=== PATIENT | female | born 1965 | race Caucasian/White ===

== ENCOUNTER → 2020-04-21 | Outpatient (CLI) | payer OTHER ==
--- NOTE | 2020-04-27 17:06 | PATH ---
[address] [address] PATHOLOGY RPT PROCEDURE Name: GUILLAUME INFANTE Room: [facility]#: [id number] Admission: 04/21/20 Date of : 65 Discharge: Report #: [id number] Path Case #: [id number] [facility] Accession Number: [id number] . 01 Material submitted: . breast - LEFT MEDIAL INFERIOR BREAST 7:00 7CMFN. Modifiers: left, medial, inferior . 01 Clinical history: . 1.33 X 1.08 X 1.64, TOUCH PREP REQUESTED, BREAST CANCER . 02 Diagnosis: Left medial inferior breast, 7:00, 7.0 cm from nipple, image-guided core biopsies: - INFILTRATING DUCTAL ADENOCARCINOMA, INTERMEDIATE GRADE, SPANNING AT LEAST 9 MM. - Small fragment of benign skin. (See comment) . (KELVIN:sharon; 04/22/2020) . . Surgical Pathology Cancer Case Summary . INVASIVE CARCINOMA OF THE BREAST: Biopsy . Procedure ___ Other: Image-guided core biopsies . Specimen Laterality ___ Left . Tumor Site ___ Clock position: 7 o'clock ___ Distance from nipple: 7.0 cm ___ Other: Medial inferior . Tumor Size ___ Greatest dimension of largest invasive focus >1 mm: At least 9 mm . Histologic Type ___ Invasive carcinoma of no special type (ductal) . Histologic Grade (Minor Histologic Score) . Glandular (Acinar)/Tubular Differentiation ___ Score 3 (<10% of tumor area forming glandular/tubular structures) [place] [address] PATHOLOGY RPT PROCEDURE Name: GUILLAUME INFANTE Room: [facility].#: [id number] Admission: 04/21/20 Date of : 65 Discharge: Report #: [id number] Path Case #: [id number] ___ Score 2 (cells larger than normal with open vesicular nuclei, visible nucleoli, and moderate variability in both size and shape) . Mitotic Rate ___ Score 1 . Overall Grade ___ Grade 2 (scores of 6 or 7) . Ductal Carcinoma In Situ (DCIS) ___ Present . Architectural Patterns ___ Solid . Nuclear Grade ___ Grade II (intermediate) . Necrosis ___ Not identified . Lymphovascular Invasion ___ Not identified . Microcalcifications ___ Present in invasive carcinoma . Ancillary Studies . Biomarker Studies ___ Pending on block A2 . (KELVIN:sharon; 04/22/2020) [facility] 04/23/2020 0951 Local . 02 Comment: Approximately 95% of the submitted tissues are involved by invasive carcinoma which shows some crush artifact attributable to touch prepping. Properly-controlled immunohistochemical studies, performed on A1, show the following results, supporting the classification: . E-cadherin: positive Keratin JING: positive . Breast tumor profile studies are pending and will be the subject of an addendum report. Emi (acting [facility] Breast Navigator) notified of preliminary findings at approximately 1505 on 04/22/2020[place] [address] PATHOLOGY RPT PROCEDURE Name: GUILLAUME INFANTE Room: [facility]#: [id number] Admission: 04/21/20 Date of : 65 Discharge: Report #: [id number] Path Case #: [id number] (KELVIN:mm; 04/22/2020) . 02 Addendum: . Special studies report received from [facility], [address] [place] [address], [address], [place], [address], on case [id number], labeled with their number [id number], dated 04/26/2020. . Breast/Prognostic Marker Analysis . Specimen Site: Left Breast, Medial Inferior, 7:00 (Biopsy), Infiltrating Ductal Adenocarcinoma Specimen ID #: [id number] . ER (Estrogen Receptor) Present/Positive Percent: 90.00% Analysis: Manual Comments: Staining Intensity: Strong. . WV (Progesterone Receptor) Present/Positive Percent: 40.00% Analysis: Manual Comments: Staining Intensity: Moderate-strong. . HER2 Not Over-Expressed Score: 1+ Analysis: Manual . Ki-67 High Proliferation Percent: 40.00% Analysis: Manual . Time to Fixation (Cold Ischemic Time): 11 minutes Duration of Fixation: 6 to 72 Hours Type of Fixative: 10% Neutral Buffered Formalin . . Comments: ER/PgR testing at [facility] is performed in compliance with the ASCO/CAP Clinical Practice Guidelines. If the result for ER is less than 1% it is reported as Negative; if the ER result is 1-10% it is reported as Low Positive; if the ER result is greater than 10% it is reported as Positive. If the result for PgR is less than 1% it is reported as Negative; if the PgR result is equal to or greater than 1%, it is reported [place] [address] PATHOLOGY RPT PROCEDURE Name: GUILLAUME INFANTE Room: [facility] SUZIE Bassett#: [id number] Admission: 04/21/20 Date of : 65 Discharge: Report #: [id number] Path Case #: [id number] Ref: Jackie MELENDEZ, Anabelle PRADOH, Everardo M, et al. Estrogen and progesterone receptor testing in breast cancer. ASCO/CAP guideline update. Arch Pathol Lab Med. 2020; 144:545-563. . Whole slide image capture is performed using [employer]) platform. Image analysis, if ordered, is performed using [employer] software. . at [facility]. Nadeem Mathias M.D. Pathologist . Methodology The HER2 Receptor protein expression is analyzed using the [place] HER2 rabbit monoclonal antibody (clone 4B5). This assay is used for diagnostic determination of the HER2 protein over-expression in paraffin embedded, formalin fixed breast cancer tissue on the [employer]. The specimen is processed using a secondary antibody-HRP conjugate detection system. The membrane staining of the tumor is determined either by manual score or image analysis. This antibody is intended for in vitro diagnostic use. The score is reported as 0, 1+, 2+, or 3+. This test is used for clinical purposes. . A rabbit monoclonal antibody (clone SP1) that recognized the Estrogen Receptor is used to perform immunohistochemistry on routinely fixed (formalin) paraffin embedded tissue on the [place] Benchmark. The specimen is processed using a secondary antibody-HRP conjugate detection system. The percentage of stained tumor nuclei is determined either manually or by image analysis. This test is intended for in vitro diagnostic use. This test is used for clinical purposes. . A rabbit monoclonal antibody (clone 1E2) that recognized the Progesterone Receptor is used to perform immunohistochemistry on routinely fixed (formalin) paraffin embedded tissue on the [place] Bench[employer]. The specimen is processed using a secondary antibody-HRP conjugate detection system. The percentage of stained tumor nuclei is determined either manually or by image analysis. This test is intended for in vitro diagnostic use. This test is used for clinical purposes. . A rabbit monoclonal antibody (clone 30-9) that recognized Ki67 is used to perform immunohistochemistry on routinely fixed (formalin) paraffin embedded tissue on the [place] Bench[employer]. The specimen is processed using a secondary antibody-HRP conjugate detection system. The percentage of stained tumor nuclei is determined either manually or by image analysis. This test is intended for in vitro diagnostic use. This test is used for clinical purposes. . Intended Use: [address] [address] PATHOLOGY RPT PROCEDURE Name: SURAJEARLEDEZGUILLAUMEDEBRA QUIÑONES Room: [facility]#: [id number] Admission: 04/21/20 Date of : 65 Discharge: Report #: [id number] Path Case #: [id number] This antibody is intended for in vitro diagnostic (IVD) use. HER2 (4B5) is a rabbit monoclonal antibody intended for the semi-quantitative detection of HER2 antigen in sections of formalin-fixed, paraffin embedded normal and neoplastic tissue. . This antibody is intended for in vitro diagnostic (IVD) use. Estrogen Receptor (ER) (SP1) is a rabbit monoclonal antibody (IgG) that is intended for the qualitative detection of estrogen receptor (ER) antigen in sections of formalin-fixed, paraffin-embedded tissue. ER is a rabbit monoclonal antibody that recognizes human estrogen receptor alpha. . This antibody is intended for in vitro diagnostic (IVD) use. Progesterone Receptor (WV) (1E2) is a rabbit monoclonal antibody (IgG) that is intended for the qualitative detection of progesterone receptor (WV) antigen in sections of formalin fixed, paraffin embedded tissue. WV is a rabbit monoclonal antibody that recognizes the A and B forms of the human progesterone receptor. . This antibody is intended for in vitro diagnostic (IVD) use. Ki-67 (30-9) is a rabbit monoclonal antibody (IgG) directed against C-terminal portion of Ki-67 antigen. Staining for Ki-67 can be used to aid in assessing the proliferative activity of normal and neoplastic tissue. Ki-67 is a nuclear protein expressed in proliferating cells. During the cell cycle, the Ki-67 antigen is present in the G1, S, G2 and M phase but is absent in the G0 (quiescent phase). . . Disclaimer: This Test was performed by [facility] at [address], [address]. . [facility] is a business unit of [facility]. a wholly-owned subsidiary of [employer]. . This assay has not been validated on decalcified tissues. Results should be interpreted with caution if this specimen was decalcified given the likelihood of false negativity on decalcified specimens. . Any image(s) that accompany this report is/are a [employer] representatives image(s) only and should not be used to render a diagnosis. . This interpretation is contingent on the specimen and the clinical information received. . For any special tests/stains performed, known positive cells or tissues are tested with each marker and examined to ensure positivity. Positive and negative internal controls, if present, [place] [address] PATHOLOGY RPT PROCEDURE Name: GUILLAUME INFANTE Room: [facility] SUZIE Bassett#: [id number] Admission: 04/21/20 Date of : 65 Discharge: Report #: [id number] Path Case #: [id number] This analysis is an adjunct to the evaluation of the referring physician and does not represent a final diagnosis. . The immunohistochemistry tests performed at [facility] were validated on tissue fixed in 10% neutral buffered formalin. The performance characteristics of the tests performed on tissue processed in other fixatives is not known. . HER2 testing at [facility] [employer] is performed in compliance with the 2018 updated ASCO/CAP Clinical Practice Guideline Focused Update. If the result is EQUIVOCAL (2+), it must be confirmed by an alternative assay such as FISH or Dual ESSENCE. REF: Myles ARIAS, JOSEY hAn et al: Human Epidermal Growth Factor Receptor 2 Testing in Breast Cancer: ASCO/CAP Clinical Practice Guideline Focused Update. J Clin Oncol 36:6023-7417, 2018. . HER2 and ER/WV ASCO/CAP guidelines require fixation in neutral buffered formalin for a minimum of 6 and a maximum of 72 hours. Fixation times less than 6 hours may not adequately preserve cell proteins. Fixation times longer than 72 hours may cause excess cross-linking of proteins reducing the antigen available for staining. Either scenario can cause reduced staining; hence false negative results are possible and should be considered for these situations if the HER2 IHC score is less than 3+ or ER or WV is negative (no staining or <1% positive). It is recommended that specimens fixed longer than 72 hours with HER2 IHC scores less than 3+ be confirmed by HER2 FISH or Dual ESSENCE. The time from biopsy/excision to fixation in formalin (cold ischemic time) must be less than 1 hour. Time to fixation (cold ischemic time) greater than 1 hour should be interpreted with caution. HER2 testing, mainly HER2 by FISH, is particularly vulnerable since excessive cold ischemic time results in preferential loss of HER2 probe signals that may lead to false negative results. . SCORE STAINING PATTERN IN TUMOR CELLS INTERPRETATION RESULTS 0 No staining observed or incomplete, faint membrane staining in less than or equal to 10% of tumor cells. Negative 1+ Incomplete, faint membrane staining in greater than 10% of tumor cells. Negative 2+ Weak to moderate complete membrane staining observed in greater than 10% of tumor cells. Equivocal* *Must be confirmed by alternative assay (IHC/FISH/Dual ESSENCE) 3+ Intense, complete membrane staining in greater than 10% of [place] [address] PATHOLOGY RPT PROCEDURE Name: GUILLAUME INFANTE Room: [facility]#: [id number] Admission: 04/21/20 Date of : 65 Discharge: Report #: [id number] Path Case #: [id number] . A complete copy of the report is on file. . Professional and Technical services performed by [employer] [employer] [facility]. at [address] [facility] [address], [place] [address]. . (KELVIN:amanabell 04/27/2020) . QL/04/27/2020 Addendum Electronically Signed by Humphrey Canales MD, Pathologist . 02 Electronically signed: . Humphrey Canales MD, Pathologist NPI- [id number] . 01 Gross description: . IMMEDIATE EVALUATION: At the request of Dr. Gee, the tissue cores are received fresh for purposes of touch prep and immediate review. Two touch preps are prepared, immediately stained and reviewed by Dr. Canales and Dr. Gee is notified that malignant cells are present by Dr. Humphrey Canales. The tissues are then placed into formalin for gross evaluation. (KELVIN:mmphyllis; 04/22/2020) . The specimen is received in formalin, labeled "Guillaume Infante, breast left inferior medial biopsy" and consists of 2 needle cores of yellow-ambrocio tissue measuring 1.1 cm and 1.5 cm in length and 0.1 cm each in diameter which are entirely submitted in A1-A2. The specimen was collected on 04/21/2020 at 9:33 AM and placed in formalin at 9:44 AM. The cold ischemic time is 11 minutes and the total formalin fixation time is greater than 6 hours less than 72 hours. (SDY; 04/21/2020) SYU/BERTO 04/22/2020 1315 Local . 02 Pathologist provided ICD-10: C50.912 . 02 CPT . 165808, [id number], Y34047, [id number] Specimen Comment: A courtesy copy of this report has been sent to [phone], [facility]-498- Specimen Comment: [id number], , Specimen Comment: Report sent to ,DR LEHMAN,DR DOTSON / DR LACY Performed at: [address], [place] [id number] MD Jordan Jaquez MD Phone: [phone] Performed at: [address] [place] [id number] PATHOLOGY RPT PROCEDURE Name: GUILLAUME INFANTE Room: [facility]#: [id number] Admission: 04/21/20 Date of : 65 Discharge: Report #: [id number] Path Case #: [id number] [address] [place], [place] [id number] MD Humphrey Canales MD Phone: [phone]
== END | disposition home or self-care (01) ==
LOC: M.ULTRA 08:00
PROVIDERS: ATTEND Surgery
DX: C50.912 Malignant neoplasm of unspecified site of left female breast (principal); Z98.890 Other specified postprocedural states; Z79.899 Other long term (current) drug therapy; Z90.710 Acquired absence of both cervix and uterus